=== PATIENT | male | born 1975 | race Caucasian/White ===

== ENCOUNTER 2017-01-26 23:27 | Observation (INO) | payer OTHER ==
--- NOTE | ~2017-01-26 | HP ---
History And Physical [place] [address] [facility] [place]. [address] NAME: TRUNG MCDONALD : 71 STATUS : ADM Carrillo PAT#: [id number] AGE: 41 ADM/REG DATE : 01/26/17 MR#: [id number] REPORT SERV DATE: 01/27/17 DICTATED BY: VANNESSA GUNTER DATE: 01/27/17 REPORT STATUS : Draft TRANSCRIBED BY: MODAlonso DATE: 01/27/17 DATE OF ADMISSION: 01/26/2017 PRESS CLEANER: Sal Davis MD; has new patient appointment, 02/11/2017, at 09:45. CHIEF COMPLAINT: Palpitations. HISTORY OF PRESENT ILLNESS: A very pleasant 41-year-old white gentleman with no known history of CAD, who presents to our facility complaining of palpitations over the weekend. He states that the palpitations continued on Tuesday. He describes associated breathlessness and at times dizziness. He denies any chest pain, pressure, or tightness. He did see his PCP this past Tuesday. EKG and troponin were performed with a stress test scheduled for tomorrow. The patient presents to the emergency room in our facility for persistent PVCs and/or palpitations with the continued symptoms of breathlessness and dizziness. He states he has checked his blood pressure at home, it was 140 over 80, his usual is 110 to 120 over 60. He denies any nausea, diaphoresis, or belching. The patient denies any personal history of myocardial infarction, stroke, DVT, or pulmonary embolus. The patient denies any recent fever or chills. Palpitations worsened this past Tuesday. Consumes one cup of coffee and occasional Diet Coke. Previously consumed an occasional energy drink, but he has stopped that. No syncopal episodes. Denies PND or orthopnea. PAST MEDICAL HISTORY: 1. Denies hypertension, dyslipidemia, or diabetes. 2. Sleep apnea, compliant with CPAP. 3. Positive family history for early CAD. 4. Former smokeless tobacco use. PAST SURGICAL HISTORY: Seven surgeries to his left knee and two to his left shoulder. SOCIAL HISTORY: He is with two children. 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 He is with two children. He works out routinely, most recently last week, 20 minutes of cardio and 90 minutes of weights without issue. Quit smokeless tobacco products 2 years ago; used for a total of 15 years. Denies illicits. Occasionally consumes alcohol. FAMILY HISTORY: Father with a heart attack at 54 with bypass x5, remains alive at 69. Mother with atrial fibrillation. REVIEW OF SYSTEMS: A 14-point review of systems performed, significant for HPI including home blood pressures of 110 to 120 over 60. Otherwise, complete review of systems obtained and negative. ALLERGIES: NO KNOWN DRUG ALLERGIES. MEDICATIONS: Home medicines are Klonopin 0.5 mg nightly p.r.n., Motrin p.r.n., and History And Physical [facility] [address] [place]. [address] NAME: TRUNG MCDONALD : 71 STATUS : ADM Carrillo PAT#: [id number] AGE: 41 ADM/REG DATE : 01/26/17 MR#: [id number] REPORT SERV DATE: 01/27/17 DICTATED BY: VANNESSA GUNTER DATE: 01/27/17 REPORT STATUS : Draft TRANSCRIBED BY: CATRACHO DATE: 01/27/17 multivitamin daily. PHYSICAL EXAMINATION: BLOOD PRESSURE: Bilateral blood pressures on arrival, right 121/59, left 124/68, this morning 123/66. PULSE: 64. RESPIRATORY RATE: 14. TEMPERATURE: 97.8. O2 saturation 98% on room air. HEIGHT: 6 feet 1 inch. WEIGHT: 217 pounds. GENERAL: Cooperative, in no apparent distress. HEENT: Pupils 2 mm, sclera nonicteric. Nares patent. Moist mucous membranes. No xanthelasma. NECK: Trachea midline, no thyromegaly. No JVD. No bruits. LYMPH: No cervical lymphadenopathy. No supraclavicular lymphadenopathy. RESPIRATORY: Unlabored respirations. Breath sounds clear bilaterally to posterior auscultation. No wheezes or rhonchi. CARDIOVASCULAR: Regular rate. No murmur, rub or gallop appreciated. Extremities without edema. Pulses 2+ bilaterally. ABDOMEN: Soft, nontender, nondistended, normal bowel sounds auscultated throughout. No organomegaly. SKIN: Warm, dry extremities. No pallor, or cyanosis. PSYCHIATRIC: Appropriate affect. Alert, oriented x3. LABORATORY DATA: Troponin less than 0.02 x3. Potassium 3.6, BUN 19, creatinine 1.32, glucose 97, and magnesium 2.0. WBC 7.9, hemoglobin 15.8, hematocrit 44.7, and platelet count 227,000. EKG, sinus rhythm with occasional P waves and T-wave abnormalities noted. Echo 2014: EF 59%. No substrate for palpitations found. ASSESSMENT AND PLAN: Palpitations with scheduled outpatient stress test to be performed tomorrow. We will check a TSH, free T4, and 48-hour Holter at discharge. Cardiology followup. We will complete outpatient stress test today and ask the patient to follow up with Cardiology and PCP as warranted. ALMAZ/MODL EILEEN Garber, GRAPE CUTTER-BC / [id number] CC: EILEEN Garber, GRAPE CUTTER-BC Melissa Covington MD
[2017-01-26 21:18] LABS: BASOPHILS 0.4 %; BASOPHILS ABSOLUTE 0.03 10/3/uL (0.0-0.16); EOSINOPHILS 1.4 %; EOSINOPHILS ABSOLUTE 0.11 10/3/uL (0.0-0.53); HEMATOCRIT 44.7 % (40.0-51.0); HEMOGLOBIN 15.8 g/dL (13.6-17.8); IMMATURE GRANULOCYTES 0.1 %; IMMATURE GRANULOCYTES ABSOLUTE 0.01 10/3/uL (0.0-0.11); LYMPHOCYTES 43.9 %; LYMPHOCYTES ABSOLUTE 3.48 10/3/uL (0.67-4.30); MEAN CORPUS HGB CONC 35.3 g/dL (32.0-36.0); MEAN CORPUSCULAR HEMOGLOB 31.6 pg (26.0-34.0); MEAN CORPUSCULAR VOLUME 89.4 fL (80-100); MEAN PLATELET VOLUME 9.2 fL (9.2-13.0); MONOCYTES 10.4 %; MONOCYTES ABSOLUTE 0.82 10/3/uL (0.21-1.20); NEUTROPHILS 43.8 %; NEUTROPHILS ABSOLUTE 3.47 10/3/uL (2.02-8.40); PLATELET COUNT 227 10/3/uL (150-400); RBC DISTRIBUTION WIDTH 12.7 % (12.0-16.0); WHITE BLOOD CELLS 7.9 10/3/uL (4.5-10.5)
[2017-01-26 21:19] LABS: MANUAL DIFF NO %
[2017-01-26 21:25] LABS: INTERNATIONAL NORMAL RATI 0.9 UNITS (-); PARTIAL THROMBO TIME 26.1 SEC (22.5-37.2); PROTIME (NOT ORD) 12.5 SEC (12.0-14.5)
[2017-01-26 21:35] LABS: BUN (BLOOD UREA NITROGEN) 19 MG/DL (6-23); CALCIUM, SERUM 9.5 MG/DL (8.5-10.4); CHEST PAIN PROFILE TAT 0 Hrs 23 Mins; CHLORIDE, SERUM 105 MMOL/L (96-112); CO2 (CARBON DIOXIDE) 26 MMOL/L (24-34); CREATININE 1.32 MG/DL (0.70-1.30); GFR AFRICAN AMERICAN 76 ML/MIN (>=60); GFR NON AFRICAN AMERICAN 66 ML/MIN (>=60); POTASSIUM, SERUM 3.6 MMOL/L (3.5-5.3); SODIUM, SERUM 141 MMOL/L (135-148); TROPONIN I <0.02 NG/ML (<0.05)
[2017-01-26 21:36] LABS: GLUCOSE, SERUM 97 MG/DL (60-99)
[~2017-01-26 23:27] MED LIST: AMB10 PO; T PO
[2017-01-27] MEDS ORDERED: KLONO5 PO (00:04)
[2017-01-27] MEDS ORDERED: MULTIVIT/MIN PO (00:06)
[2017-01-27] MEDS ORDERED: MOTRIN IB200 MG PO (00:06)
[2017-01-27 07:09] LABS: TROPONIN I <0.02 NG/ML (<0.05)
[2017-01-27 11:10] LABS: FREE T4 0.96 NG/DL (0.76-1.46)
[2017-01-27 14:23] LABS: CHOLESTEROL 225 MG/DL (< 200)
[2017-01-27 14:24] LABS: CHOL/HDL RATIO(NOT ORDER) 4.2 (0-5); HDL CHOLESTEROL 54 MG/DL (> 39); NON-HDL CHOLESTEROL 171 MG/DL (< 160); TRIGLYCERIDE 445 MG/DL (< 150)
[2017-01-27] MEDS ORDERED: LIPITOR40 PO (21:13)
== END 2017-01-27 21:55 | disposition home or self-care (01) ==
LOC: ER 23:27 → CDU1 23:34
PROVIDERS: Clinical Nurse Specialist; Emergency Medicine
DX: I20.0 Unstable angina (principal); G47.30 Sleep apnea, unspecified; Z87.891 Personal history of nicotine dependence; Z98.890 Other specified postprocedural states; Z79.899 Other long term (current) drug therapy
CPT/HCPCS: 71020; 78452; 80048; 80061; 83735; 84439; 84443; 84484; 85025; 85610; 85730; 93005; 93017; 93225; 93458; 99152; 99285; A9270-GY; A9502; C1769; C1887; C1894; G0378; J2250; J3010; Q9967